=== PATIENT | female | born 1940 | race Caucasian/White ===

== ENCOUNTER → 2024-01-28 11:16 | Outpatient (REF) | payer MEDICARE, SELFPAY ==
[2024-01-28 13:02] LABS: % Basophils 0.6 % (0-2); % Eosinophils 2.1 % (0-6); % Immature Granulocytes 0.3 % (0-0.5); % Lymphocytes 29.2 % (20.5-51.1); % Monocytes 6.9 % (1.7-9.3); % Neutrophils 60.9 % (42.2-75.2); Absolute Eosinophils 0.1 10^3/uL (0-0.7); Absolute Lymphocytes 1.9 10^3/uL (1.2-3.4); Absolute Monocytes 0.5 10^3/uL (0.1-0.6); Hematocrit 39.4 % (37.0-47.0); Hemoglobin 13.2 g/dL (12.0-16.0); Mean Corp Hgb Conc. 33.5 g/dL (33.0-37.0); Mean Corpuscular Hgb 31.7 pg (27.0-31.0); Mean Corpuscular Volume 94.7 fL (81.0-99.0); Mean Platelet Volume 10.5 fL (7.4-10.4); Nucleated Red Blood Cells % 0 %; Platelet Count 297 10^3/uL (130-400); Red Blood Cell Count 4.16 10^6/uL (4.20-5.40); Red Cell Dist. Width 12.6 % (11.5-14.5); White Blood Cell Count 6.5 10^3/uL (4.8-10.8)
[2024-01-28 13:45] LABS: ALT (SGPT) 16 U/L (0-35); AST (SGOT) 21 U/L (14-36); Albumin 4.5 g/dl (3.5-5.0); Alkaline Phosphatase 87 U/L (38-126); Blood Urea Nitrogen 19 mg/dl (7-17); Calcium 10.3 mg/dl (8.4-10.2); Carbon Dioxide 27 mmol/L (22-30); Chloride 104 mmol/L (98-107); Glucose 89 mg/dl (70-99); Potassium 5.2 mmol/L (3.5-5.1); Sodium 139 mmol/L (135-145); Total Bilirubin 0.5 mg/dl (0.2-1.3); Total Protein 6.9 g/dl (6.3-8.2); Uric Acid 6.9 mg/dl (2.5-6.2); eGFR 55.55
[2024-01-28 13:54] LABS: C-Reactive Protein < 5.00 mg/L (0.0-10.00)
[2024-01-28 14:26] LABS: TSH Reflex To Free T4 0.23 uIU/ml (0.47-4.68)
[2024-01-28 14:45] LABS: Vitamin B12 869 pg/ml (239-931)
[2024-01-28 14:53] LABS: Free T4 0.92 ng/dl (0.78-2.19)
[2024-01-28 15:14] LABS: Erythrocyte Sed Rate 17 mm/hour (0-20)
== END ==
LOC: REG 11:16
PROVIDERS: ATTENDING PHYSICIAN Internal Medicine
DX: R21 Rash and other nonspecific skin eruption (principal); R20.2 Paresthesia of skin
CPT/HCPCS: 36415; 80053; 82607; 84439; 84443; 84550; 85025; 85652; 86140

== ENCOUNTER → 2024-02-12 09:11 | Outpatient (REF) | payer MEDICARE, SELFPAY | LOC: RAD 09:11 | PROVIDERS: ATTENDING PHYSICIAN Internal Medicine | DX: R20.2 Paresthesia of skin (principal) | CPT/HCPCS: 70450 ==

== ENCOUNTER → 2024-05-12 09:59 | Outpatient (REF) | payer MEDICARE, SELFPAY | LOC: RAD 09:59 | PROVIDERS: ATTENDING PHYSICIAN Surgery Vascular Surgery; FAMILY PHYSICIAN Internal Medicine | DX: I65.21 Occlusion and stenosis of right carotid artery (principal) | CPT/HCPCS: 93880 ==

== ENCOUNTER 2024-06-28 11:07 | Emergency (ER) | payer MEDICARE, SELFPAY ==
[2024-06-28 11:10] VITALS: BP 169/62
--- NOTE | 2024-06-28 11:40 | ED.GENMED ---
History of Present Illness
<Kaylee Panchal PA-C - Last Filed: 06/28/24 14:12>
General
Chief Complaint: Fall
Source: patient
Exam Limitations: none
Time Seen by Provider: 06/28/24 11:22
Nursing documentation reviewed up to this point in time: agreed with
History of Present Illness
History of Present Illness:
84-year-old female with past medical history of hypertension, hyperlipidemia, takes aspirin presents emergency department today with concerns of dizziness and word finding difficulties following a fall. Patient reports that she was carrying a
carton of soda down to the basement and was walking backwards down the stairs to carry this soda when she lost her footing and fell back from 2 stairs and hit the back of her head. She also notes intermittent headaches. She also states that she
feels shaky. She denies numbness and tingling in her upper extremities. She denies arm pain, back pain, chest wall pain, abdominal pain. She did not loose consciousness. with her witnessed the fall.
Past History
<VELVET Rivera Last Filed: 06/28/24 14:12>
Past History
ED Past Medical History: HTN and Other (Patient has history of diverticulosis, cervical cancer, BPV)
ED Past Surgical History: Other (Patient has had a hysterectomy with radiation therapy for cervical cancer, as well as colonoscopy with cauterization of bleeding sites. )
Patient has exhibited threatening behavior?: No
PSI?: No
Social History
Tobacco: Non-smoker
Alcohol: None
Drug: None
Personal:
Living: with family
Employment: Retired
Family History
Family History: Other (Contributory)
Review of Systems
<Kaylee Panchal PA-C - Last Filed: 06/28/24 14:12>
Review of Systems
All Other Systems: ROS reviewed and negative except as documented in HPI and ROS
Phy Exam
<Kaylee Panchal PA-C - Last Filed: 06/28/24 14:12>
Physical Exam
Physical Exam:
General: Patient is well appearing and in no acute distress; non-toxic
Skin: Warm and dry, small abrasion noted to the posterior scalp
Head: palpable posterior scalp hematma noed
Eyes: Sclera non-icteric. EOMs intact. PERRLA.
Neck: No midline spinal tenderness to palpation
Cardiac: Regular rate and rhythm, no murmurs
Peripheral Vascular: No lower extremity swelling or edema
Pulm: Normal respiratory effort
Abdomen: No abdominal tenderness to palpation
Musculoskeletal: No tenderness to palpation of the bilateral upper and lower extremities, no palpable bony
Neuro: CN II-XII intact. Mild aphasia. Normal finger to nose, heel to stovall.
Psychiatric: Appropriate mood and affect.
Course
<Kaylee Panchal PA-C - Last Filed: 06/28/24 14:12>
Orders/Labs/Results
Orders:
Orders
06/28/24 11:37
CT Cervical Spine W/o Iv Contr Urgent
Comment:
Reason For Exam: midline neck pain
CT Head W/o Iv Contrast Urgent
Comment:
Reason For Exam: dizzines, posterior head trauma
06/28/24 11:59
Labetalol HCl [Trandate] 10 mg IV NOW STA
06/28/24 12:12
Basic Metabolic Panel Urgent
Complete Blood Count/With Diff Urgent
PTT Urgent
Prothrombin Time Urgent
Abnormal Lab Results
06/28/24
12:12
RBC 3.94 L 10^6/uL
(4.20-5.40)
MCV 99.7 H fL
(81.0-99.0)
MCH 31.7 H pg
(27.0-31.0)
MCHC 31.8 L g/dL
(33.0-37.0)
Abs Immat Gran (auto) 0.1 H 10^3/uL
(0-0.05)
Absolute Monos (auto) 0.7 H 10^3/uL
(0.1-0.6)
Immature Gran % 0.6 H %
(0-0.5)
Lymphocytes % 19.2 L %
(20.5-51.1)
Carbon Dioxide 21 L mmol/L
(22-30)
BUN 26 H mg/dl
(7-17)
Creatinine 1.1 H mg/dL
(0.6-1.0)
Glucose 152 H mg/dl
(70-99)
06/28/24 12:12
06/28/24 12:12
Vital Signs
Initial and Last Documented VS:
Initial Vital Signs
Temp Pulse Resp BP Pulse Ox
97.7 F 94 18 169/62 99
06/28/24 11:10 06/28/24 11:10 06/28/24 11:10 06/28/24 11:10 06/28/24 11:10
Last Documented Vital Signs
Temp Pulse Resp BP Pulse Ox
97.7 F 77 19 121/43 95
06/28/24 11:10 06/28/24 13:15 06/28/24 13:15 06/28/24 13:00 06/28/24 13:15
<Emory Torres, DO - Last Filed: 06/28/24 12:41>
Orders/Labs/Results
Orders:
Orders
06/28/24 11:37
CT Cervical Spine W/o Iv Contr Urgent
Comment:
Reason For Exam: midline neck pain
CT Head W/o Iv Contrast Urgent
Comment:
Reason For Exam: dizzines, posterior head trauma
06/28/24 11:59
Labetalol HCl [Trandate] 10 mg IV NOW STA
06/28/24 12:12
Basic Metabolic Panel Urgent
Complete Blood Count/With Diff Urgent
PTT Urgent
Prothrombin Time Urgent
Abnormal Lab Results
06/28/24
12:12
RBC 3.94 L 10^6/uL
(4.20-5.40)
MCV 99.7 H fL
(81.0-99.0)
MCH 31.7 H pg
(27.0-31.0)
MCHC 31.8 L g/dL
(33.0-37.0)
Abs Immat Gran (auto) 0.1 H 10^3/uL
(0-0.05)
Absolute Monos (auto) 0.7 H 10^3/uL
(0.1-0.6)
Immature Gran % 0.6 H %
(0-0.5)
Lymphocytes % 19.2 L %
(20.5-51.1)
Carbon Dioxide 21 L mmol/L
(22-30)
BUN 26 H mg/dl
(7-17)
Creatinine 1.1 H mg/dL
(0.6-1.0)
Glucose 152 H mg/dl
(70-99)
06/28/24 12:12
06/28/24 12:12
Vital Signs
Initial and Last Documented VS:
Initial Vital Signs
Temp Pulse Resp BP Pulse Ox
97.7 F 94 18 169/62 99
06/28/24 11:10 06/28/24 11:10 06/28/24 11:10 06/28/24 11:10 06/28/24 11:10
Last Documented Vital Signs
Temp Pulse Resp BP Pulse Ox
97.7 F 77 19 121/43 95
06/28/24 11:10 06/28/24 13:15 06/28/24 13:15 06/28/24 13:00 06/28/24 13:15
<Kaylee Panchal PA-C - Last Filed: 06/28/24 14:12>
MDM/Problems Addressed
Differential Diagnosis Includes:
See below
MDM/Problems Addressed:
NUMBER AND COMPLEXITY OF PROBLEMS ADDRESSED AT THE ENCOUNTER
� Chronic conditions affecting care: HTN, diabetes, HLP
� Acute Exacerbation and/or Progression of Chronic Illness:
� Differential Diagnosis includes: Differentials include concussion, abrasion, epidural hematoma, subarachnoid hemorrhage, subdural hematoma
AMOUNT AND/OR COMPLEXITY OF DATA TO BE REVIEWED AND ANALYZED
� I performed an independent evaluation of and my interpretation is
CT: subarachnoid hemorrhage
Laboratory Studies: CBC unremarkable
Other:
� Review of other/old records: Reviewed previous ER physician documentation from 04/25/2022, patient seen for vertigo and discharge, reviewed [facility] no discharge summary to
� Clinical information was obtained by an independent historian: present with patient who also provided HPI
� Prescriptions/Medications Considered but not given: none
� Further testing considered but not performed: n/a
RISK OF COMPLICATIONS AND/OR MORBIDITY OR MORTALITY OF PATIENT MANAGEMENT
� Social determinants of health affecting care: none
� Discussion with other providers: ER attending
� Escalation of care including admission/observation vs risk of discharge considered:
84-year-old female presents emergency department with dizziness and word finding difficulties following a fall. She fell backwards down 3 steps. She has dizziness,headache, word finding difficulties. She not lose consciousness. She came in by
private ambulance. She is able to get up and walk on her own after the fall. Her CT scan reveals moderate subarachnoid hemorrhage involving the left frontotemporal regions and extending around the left aspect of the basal cisterns with
questionable small amounts of subdural or subarachnoid blood. [facility] contacted for transfer. BP management initiated with dose of labetolol.
<Kaylee Panchal PA-C - Last Filed: 06/28/24 14:12>
*Pulse Oximetry
Patient hypoxic: no
*Critical Care Note
Total Time (30-74mins, 75-104mins- exclusive of procedures): 40
<Emory Torres DO - Last Filed: 06/28/24 12:41>
*Critical Care Note
Total Time (30-74mins, 75-104mins- exclusive of procedures): 40min
comment:
I evaluated the patient emergently at bedside. She is found to have a traumatic subarachnoid hemorrhage greater than subdural hemorrhage. Her blood pressure was elevated and she was emergently given labetalol to decrease the blood pressure to
between 110 and 140 as recommended by the doctors at [facility]. Neurologic status was closely monitored. Blood work was reviewed.
ED Attending Note
<Kaylee Panchal PA-C - Last Filed: 06/28/24 14:12>
-
Portions of this chart may have been created with voice recognition software.� Occasional wrong word or��sound alike� substitutions may have occurred due to the inherent limitations of voice recognition software.
<Emory Torres DO - Last Filed: 06/28/24 12:41>
ED Attending Note
Patient seen and examined by attending physician: Yes
I performed the substantive portion of visit, reviewed & personally made and approve the management plan that is documented in note by myself or MILTON.: Yes
ED Attending Note:
As patient was wheeled back from CT, I was informed of the CT techs concern of intracranial hemorrhage. There does appear to be left-sided subarachnoid blood. I immediately evaluated the patient. She did have a traumatic event earlier today and
struck her head. She does have some dizziness and has some word problem findings currently.
Discharge Plan
Departure
Patient Disposition: [facility]
Date of Disposition: 06/28/24
Time of Disposition: 12:00
Discharge Problem:
Traumatic subarachnoid hemorrhage
Prescriptions:
No Action
amlodipine 5 MG tablet
5 mg PO DAILY
folic acid 0.4 MG tablet
0.4 mg PO DAILY
benazepril 20 MG tablet
20 mg PO DAILY
One-A-Day Women's 50 Plus 1 EACH tablet
1 ea PO DAILY
epinephrine [EpiPen] 0.3 MG/0.3/SYRINGE auto-injector
0.3 mg IM .STAT PRN (Reason: allergic reaction) Qty: 1 0RF
diphenhydramine HCl [Benadryl] 25 mg capsule
25 mg PO TID PRN (Reason: itching) Qty: 20 0RF
Metamucil
1 dose PO DAILY
famotidine 20 MG tablet
20 mg PO DAILY PRN (Reason: bee sting)
meclizine 25 mg tablet
25 mg PO TID PRN (Reason: dizziness) Qty: 10 0RF
Referrals:
Julian Schaffer MD [Family Provider] -
Hospital Transfer
Other hospital: [facility]
I certify that the patient requires transfer: Yes
Discussed case with accepting physician: Dr. Chacon
Reason for transfer: higher level of care
Interventions
Interventions:
*Risk Screen - Suicide Last Done: 06/28/24 11:10
*General Assessment Last Done: 06/28/24 11:10
*Neglect/Abuse Screening Last Done: 06/28/24 12:03
ED- Fall Risk Assessment Last Done: 06/28/24 12:55
*ED COVID-19 Vaccine History Last Done: 06/28/24 11:10
*Nursing Disposition Last Done: 06/28/24 12:55
ED-Musculoskeletal Assessment Last Done: 06/28/24 12:01
ED- Neurological Assessment Last Done: 06/28/24 12:01
ED-Skin Assessment Last Done: 06/28/24 12:01
Discharge Date and Time
Print Language: HUNGARIAN
[2024-06-28 11:56] VITALS: BP 165/68
[2024-06-28 12:00] VITALS: BP 159/72
[2024-06-28] MEDS: TRANDATE 10 MG IV (12:13)
[2024-06-28 12:16] VITALS: BP 120/39
[2024-06-28 12:25] LABS: % Basophils 0.5 % (0-2); % Immature Granulocytes 0.6 % (0-0.5); % Lymphocytes 19.2 % (20.5-51.1); % Monocytes 7.8 % (1.7-9.3); % Neutrophils 69.9 % (42.2-75.2); Absolute Basophils 0.1 10^3/uL (0-0.2); Absolute Eosinophils 0.2 10^3/uL (0-0.7); Absolute Immature Granulocytes 0.1 10^3/uL (0-0.05); Absolute Lymphocytes 1.8 10^3/uL (1.2-3.4); Absolute Monocytes 0.7 10^3/uL (0.1-0.6); Absolute Neutrophils 6.5 10^3/uL (1.4-6.5); Hematocrit 39.3 % (37.0-47.0); Hemoglobin 12.5 g/dL (12.0-16.0); Mean Corp Hgb Conc. 31.8 g/dL (33.0-37.0); Mean Corpuscular Hgb 31.7 pg (27.0-31.0); Mean Corpuscular Volume 99.7 fL (81.0-99.0); Mean Platelet Volume 9.7 fL (7.4-10.4); Nucleated Red Blood Cells % 0 %; Platelet Count 345 10^3/uL (130-400); Red Blood Cell Count 3.94 10^6/uL (4.20-5.40); Red Cell Dist. Width 13.2 % (11.5-14.5); White Blood Cell Count 9.3 10^3/uL (4.8-10.8)
[2024-06-28 12:36] LABS: Blood Urea Nitrogen 26 mg/dl (7-17); Calcium 10.1 mg/dl (8.4-10.2); Carbon Dioxide 21 mmol/L (22-30); Chloride 104 mmol/L (98-107); Glucose 152 mg/dl (70-99); Potassium 4.8 mmol/L (3.5-5.1); Sodium 135 mmol/L (135-145); eGFR 49.55
[2024-06-28 12:39] LABS: INR 0.87; PT 12.4 Sec (11.4-14.6)
[2024-06-28 12:40] LABS: APTT 26.8 Sec (23.4-35.0)
[2024-06-28 13:00] VITALS: BP 121/43
== END 2024-06-28 13:45 | disposition short-term general hospital (02) ==
LOC: EMR 11:07
PROVIDERS: EMERGENCY PHYSICIAN Emergency Medicine; FAMILY PHYSICIAN Internal Medicine
DX: S06.6X0A Traumatic subarachnoid hemorrhage without loss of consciousness, initial encounter (principal); W10.8XXA Fall (on) (from) other stairs and steps, initial encounter; E78.5 Hyperlipidemia, unspecified; I10 Essential (primary) hypertension; E11.9 Type 2 diabetes mellitus without complications; Z85.41 Personal history of malignant neoplasm of cervix uteri; Z90.710 Acquired absence of both cervix and uterus
CPT/HCPCS: 96374; 99291; 70450; 72125; 80048; 85025; 85610; 85730

== ENCOUNTER 2024-07-11 09:00 | Outpatient (RCR) | payer MEDICARE, SELFPAY | END 2024-07-11 23:59 | disposition home or self-care (01) | LOC: ROT 09:00 | PROVIDERS: ATTENDING PHYSICIAN Internal Medicine | DX: S06.9X9D Unspecified intracranial injury with loss of consciousness of unspecified duration, subsequent encounter (principal); R47.01 Aphasia; Z73.6 Limitation of activities due to disability | CPT/HCPCS: 70450; 92507; 92523; 97167; 97535 ==

== ENCOUNTER → 2024-07-11 10:24 | Outpatient (REF) | payer MEDICARE, SELFPAY | LOC: RAD 10:24 | PROVIDERS: ATTENDING PHYSICIAN Internal Medicine | DX: S74.02XA Injury of sciatic nerve at hip and thigh level, left leg, initial encounter (principal) | CPT/HCPCS: 72100 ==

== ENCOUNTER 2024-07-14 12:04 | Emergency (ER) | payer MEDICARE, SELFPAY ==
[2024-07-14] VITALS (24 sets, daily range): BP systolic 87–171; BP diastolic 48–97; PULSE 92–120; BMI 16.1
--- NOTE | 2024-07-14 12:35 | ED.GENMED ---
ED Provider Triage
<Gamal Ceballos PA-C - Last Filed: 07/14/24 12:37>
-
Patient seen by provider in Triage?: Seen in Triage
84 yo female presents due to orthostatic hypotension at PT today. Standing BP 60/40. Feels well at the moment; near syncopal during the event. Mildly hypotensive in triage.
Looks well while seated. Took amlodipine/benazepril this AM. Also took tramadol 50mg this AM.
Check labs/EKG; will need fluids due to hypotension
History of Present Illness
<Gamal Ceballos PA-C - Last Filed: 07/14/24 12:37>
General
Chief Complaint: Blood Pressure Problem
Time Seen by Provider: 07/14/24 14:39
<Gaye Conley BANQUET STEWARDESS - Last Filed: 07/15/24 15:36>
General
Source: patient and spouse
Exam Limitations: none
Nursing documentation reviewed up to this point in time: agreed with
History of Present Illness
History of Present Illness:
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 She has been coming for outpatient speech therapy and Occupational Therapy
starting 4 days ago. Today was her first day of physical therapy. She finished the P/T session well and at the end of the session as usual they checked her blood pressure and it was reported to be 64/45 standing and. 115/52 laying supine, 98/84
sitting, states patient was saying 'everything looked hazy,' and patient states that intermittently chronically her legs feel weak and things get hazy but she denies feeling that way at this time.
Pt denies headache, change in vision, CP, SOB, abdominal pain. Denies feeling lightheaded or dizzy.
Past History
<Gamal Ceballos PA-C - Last Filed: 07/14/24 12:37>
Past History
ED Past Medical History: HTN and Other (Patient has history of diverticulosis, cervical cancer, BPV)
ED Past Surgical History: Other (Patient has had a hysterectomy with radiation therapy for cervical cancer, as well as colonoscopy with cauterization of bleeding sites. )
Patient has exhibited threatening behavior?: No
PSI?: No
Social History
Tobacco: Non-smoker
Alcohol: None
Drug: None
Personal:
Living: with family
Employment: Retired
Family History
Family History: Other (Contributory)
<Gaye Conley, BANQUET STEWARDESS - Last Filed: 07/15/24 15:36>
Past History
ED Past Medical History: Hypercholesterolemia
Review of Systems
<Gaye Conley, BANQUET STEWARDESS - Last Filed: 07/15/24 15:36>
Review of Systems
Allergies reviewed?: Yes
All Other Systems: ROS reviewed and negative except as documented in HPI and ROS
Constitutional: Denies fever or chills
Respiratory: Denies trouble breathing
Cardiac: Denies chest pain, palpitations or syncope
ABD/GI: Denies abdominal pain, nausea, vomiting, diarrhea or anorexia
: Denies dysuria, frequency or difficulty voiding
Musculoskeletal: Reports no symptoms
Skin: Reports no symptoms
Neurological: Reports no symptoms
Phy Exam
<Gaye Conley, BANQUET STEWARDESS - Last Filed: 07/15/24 15:36>
Physical Exam
Physical Exam:
GENERAL: No acute distress. A&Ox3.
CONSTITUTIONAL: Afebrile.
EYES: clear, conjunctivae normal
ENMT: moist mucus membranes, Pharynx nl
RESPIRATORY: Regular respirations, nonlabored, lungs clear.
CARDIOVASCULAR: Regular rate and rhythm, no murmurs, no rubs.
GI: Soft, nontender, normal BS
MUSCULOSKELETAL: Moves with ease. Well perfused.
SKIN: Warm, dry, pink
PSYCH: Normal mood and affect. Well kept, interactive and appropriate
NEUROLOGIC: Awake, alert and oriented. No focal neurological deficits. Ambulates well with steady gait.
Course
<Gamal Ceballos PA-C - Last Filed: 07/14/24 12:37>
Orders/Labs/Results
Orders:
Orders
07/14/24 12:35
Electrocardiogram (*1) Urgent
Reason for Study: TIA/Stroke
EKG- Treatment ONCE
07/14/24 13:23
Complete Blood Count/With Diff Urgent
07/14/24 14:18
Comprehensive Metabolic Panel Urgent
07/14/24 14:53
0.9% Sodium Chloride 1000 ml [Nss] 1,000 ml IV BOLUS
07/14/24 18:05
Urinalysis Reflex To Culture Urgent
Date Specimen was Collected: 07/14/24
Time Specimen was Collected: 18:04
Urine Microscopic Reflex Cult Urgent
Urine Culture Urgent
DINORA Source: U
Specimen Description:
Date Specimen was Collected: 07/14/24
Time Specimen was Collected: 18:04
Abnormal Lab Results
07/14/24 07/14/24 07/14/24
13:23 14:18 18:05
RBC 3.65 L 10^6/uL
(4.20-5.40)
Hgb 11.9 L g/dL
(12.0-16.0)
Hct 35.6 L %
(37.0-47.0)
MCH 32.6 H pg
(27.0-31.0)
Plt Count 486 H 10^3/uL
(130-400)
Abs Immat Gran (auto) 0.1 H 10^3/uL
(0-0.05)
Immature Gran % 0.6 H %
(0-0.5)
Neutrophils % 75.3 H %
(42.2-75.2)
Lymphocytes % 15.4 L %
(20.5-51.1)
BUN 26 H mg/dl
(7-17)
Glucose 126 H mg/dl
(70-99)
Total Protein 6.0 L g/dl
(6.3-8.2)
Leukocyte Esterase Rfl Trace A
(Negative)
Urine Bacteria (Reflex) Moderate A
(Negative)
07/14/24 13:23
07/14/24 14:18
Vital Signs
Initial and Last Documented VS:
Initial Vital Signs
Temp Pulse Resp BP Pulse Ox
97.4 F 105 20 87/55 98
07/14/24 12:32 07/14/24 12:32 07/14/24 12:32 07/14/24 12:32 07/14/24 12:32
Last Documented Vital Signs
Temp Pulse Resp BP Pulse Ox
97.4 F 92 21 150/51 98
07/14/24 12:32 07/14/24 16:00 07/14/24 16:00 07/14/24 16:00 07/14/24 12:32
<Gaye Conley, BANQUET STEWARDESS - Last Filed: 07/15/24 15:36>
Orders/Labs/Results
Orders:
Orders
07/14/24 12:35
Electrocardiogram (*1) Urgent
Reason for Study: TIA/Stroke
EKG- Treatment ONCE
07/14/24 13:23
Complete Blood Count/With Diff Urgent
07/14/24 14:18
Comprehensive Metabolic Panel Urgent
07/14/24 14:53
0.9% Sodium Chloride 1000 ml [Nss] 1,000 ml IV BOLUS
07/14/24 18:05
Urinalysis Reflex To Culture Urgent
Date Specimen was Collected: 07/14/24
Time Specimen was Collected: 18:04
Urine Microscopic Reflex Cult Urgent
Urine Culture Urgent
DINORA Source: U
Specimen Description:
Date Specimen was Collected: 07/14/24
Time Specimen was Collected: 18:04
Abnormal Lab Results
07/14/24 07/14/24 07/14/24
13:23 14:18 18:05
RBC 3.65 L 10^6/uL
(4.20-5.40)
Hgb 11.9 L g/dL
(12.0-16.0)
Hct 35.6 L %
(37.0-47.0)
MCH 32.6 H pg
(27.0-31.0)
Plt Count 486 H 10^3/uL
(130-400)
Abs Immat Gran (auto) 0.1 H 10^3/uL
(0-0.05)
Immature Gran % 0.6 H %
(0-0.5)
Neutrophils % 75.3 H %
(42.2-75.2)
Lymphocytes % 15.4 L %
(20.5-51.1)
BUN 26 H mg/dl
(7-17)
Glucose 126 H mg/dl
(70-99)
Total Protein 6.0 L g/dl
(6.3-8.2)
Leukocyte Esterase Rfl Trace A
(Negative)
Urine Bacteria (Reflex) Moderate A
(Negative)
07/14/24 13:23
07/14/24 14:18
Vital Signs
Initial and Last Documented VS:
Initial Vital Signs
Temp Pulse Resp BP Pulse Ox
97.4 F 105 20 87/55 98
07/14/24 12:32 07/14/24 12:32 07/14/24 12:32 07/14/24 12:32 07/14/24 12:32
Last Documented Vital Signs
Temp Pulse Resp BP Pulse Ox
97.4 F 92 21 150/51 98
07/14/24 12:32 07/14/24 16:00 07/14/24 16:00 07/14/24 16:00 07/14/24 12:32
<Gaye Conley NP - Last Filed: 07/15/24 15:36>
MDM/Problems Addressed
Differential Diagnosis Includes:
orthostatic hypotension, dehydration
MDM/Problems Addressed:
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 She has been coming for outpatient speech therapy and Occupational Therapy
starting 4 days ago. Today was her first day of physical therapy. She finished the P/T session well and at the end of the session as usual they checked her blood pressure and it was reported to be 64/45 standing and. 115/52 laying supine, 98/84
sitting, states patient was saying 'everything looked hazy,' and patient states that intermittently chronically her legs feel weak and things get hazy but she denies feeling that way at this time.
Pt denies headache, change in vision, CP, SOB, abdominal pain. Denies feeling lightheaded or dizzy.
Only new medication is Plavix
EKG: NSR with occas PVC
5:30 p.m.
After 1 L NSS IV:
Orthostatic vs by this examiner
Supine 160/58 HR 103
Sitting 122/87 HR 88
Standing 135/46 HR 95 pt denies feeling dizzy, lightheaded
Pt is more agitated, as she wants to go home.
Pt instructed to have no further P/T until cleared by Dr. Schaffer early next week. Return precautions reviewed with pt and .
Urinalysis pending. Pt anxious to get home will dc and call if u/a positive.
U/A neg
<Gaye Conley, BANQUET STEWARDESS - Last Filed: 07/15/24 15:36>
*EKG
EKG Intrepretation Date: 07/14/24
Interpretation: abnormal
Heart Rate: 90
Rate: normal
Rhythm: PVC's
[place]: normal axis
Interval: normal interval
QRS Pattern: normal QRS
Ischemia: no ischemia
*Critical Care Note
Total Time (30-74mins, 75-104mins- exclusive of procedures): Not Applicable
ED Attending Note
<Gamal Ceballos PA-C - Last Filed: 07/14/24 12:37>
-
Portions of this chart may have been created with voice recognition software.� Occasional wrong word or��sound alike� substitutions may have occurred due to the inherent limitations of voice recognition software.
Discharge Plan
Departure
Patient Disposition: Home (Routine Discharge)
Date of Disposition: 07/14/24
Time of Disposition: 17:40
Patient with high blood pressure during this ER visit?: No
Condition: Good
Discharge Problem:
Hypotension, postural
Instructions: Orthostatic hypotension
Prescriptions:
No Action
amlodipine 5 MG tablet
5 mg PO DAILY
folic acid 0.4 MG tablet
0.4 mg PO DAILY
benazepril 20 MG tablet
20 mg PO DAILY
atorvastatin 80 mg Tablet
80 mg PO DAILY
cyanocobalamin (vitamin B-12) 1,000 mcg Tablet
1,000 mcg PO DAILY
clopidogrel 75 mg Tablet
75 mg PO DAILY
aspirin 81 mg Tablet,Delayed Release (Dr/Ec)
81 mg PO DAILY
tramadol 50 mg Tablet
50 mg PO BID
acetaminophen [Tylenol 8 Hour] 650 mg Tablet Extended Release
1,300 mg PO Q12H
Referrals:
Julian Schaffer MD [Family Provider] - Call in 1-3 days for appt
Activity Restrictions/Additional Instructions:
As we discussed, call Dr. Schaffer's office first thing Wednesday morning and make same or next day appointment for recheck of blood pressures and heart rate
Drink at least 6 eight ounce glasses of water/fluid daily
When going from laying to sitting to standing, do it slowly.
Return here immediately over the weekend for dizziness, feeling faint, or feeling worse in any way.
No Physical Therapy until further instructed by Dr. Schaffer next week.
Interventions
Interventions:
*Risk Screen - Suicide Last Done: 07/14/24 12:32
*General Assessment Last Done: 07/14/24 12:32
*Neglect/Abuse Screening Last Done: 07/14/24 12:32
ED- Fall Risk Assessment Last Done: 07/14/24 13:11
*ED COVID-19 Vaccine History Last Done: 07/14/24 13:11
*Nursing Disposition Last Done: 07/14/24 18:07
ED- Cardiac Assessment Last Done: 07/14/24 13:11
ED- Neurological Assessment Last Done: 07/14/24 13:11
ED- Pulmonary Assessment Last Done: 07/14/24 13:11
Discharge Date and Time
Discharge Date/Time: 07/14/24 18:08
Print Language: BOLIVIAN
[2024-07-14 13:53] LABS: % Basophils 0.5 % (0-2); % Eosinophils 0.6 % (0-6); % Immature Granulocytes 0.6 % (0-0.5); % Lymphocytes 15.4 % (20.5-51.1); % Monocytes 7.6 % (1.7-9.3); % Neutrophils 75.3 % (42.2-75.2); Absolute Eosinophils 0.1 10^3/uL (0-0.7); Absolute Immature Granulocytes 0.1 10^3/uL (0-0.05); Absolute Lymphocytes 1.3 10^3/uL (1.2-3.4); Absolute Monocytes 0.6 10^3/uL (0.1-0.6); Absolute Neutrophils 6.2 10^3/uL (1.4-6.5); Hematocrit 35.6 % (37.0-47.0); Hemoglobin 11.9 g/dL (12.0-16.0); Mean Corp Hgb Conc. 33.4 g/dL (33.0-37.0); Mean Corpuscular Hgb 32.6 pg (27.0-31.0); Mean Corpuscular Volume 97.5 fL (81.0-99.0); Mean Platelet Volume 9.2 fL (7.4-10.4); Nucleated Red Blood Cells % 0 %; Platelet Count 486 10^3/uL (130-400); Red Blood Cell Count 3.65 10^6/uL (4.20-5.40); Red Cell Dist. Width 12.7 % (11.5-14.5); White Blood Cell Count 8.2 10^3/uL (4.8-10.8)
[2024-07-14 14:45] LABS: ALT (SGPT) 23 U/L (0-35); Albumin 3.6 g/dl (3.5-5.0); Alkaline Phosphatase 75 U/L (38-126); Blood Urea Nitrogen 26 mg/dl (7-17); Calcium 10.2 mg/dl (8.4-10.2); Carbon Dioxide 25 mmol/L (22-30); Chloride 104 mmol/L (98-107); Estimated Creatinine Clearance 31 ml/min; Glucose 126 mg/dl (70-99); Potassium 4.8 mmol/L (3.5-5.1); Sodium 137 mmol/L (135-145); Total Bilirubin 0.4 mg/dl (0.2-1.3); eGFR > 60.00
[2024-07-14 14:59] LABS: AST (SGOT) 22 U/L (14-36)
[2024-07-14] MEDS: NSS 1000 IV (15:02)
[2024-07-14 18:19] LABS: Urine Albumin Negative (Neg - Trace); Urine Bilirubin Negative (Negative); Urine Character Clear (Clear); Urine Color Yellow; Urine Glucose Negative (Negative); Urine Ketone Negative (Negative); Urine Leukocyte Trace (Negative); Urine Nitrite Negative (Negative); Urine Occult Blood Negative (Negative); Urine Specific Gravity 1.015 (<1.030); Urine Urobilinogen Negative (Neg - 1+)
[2024-07-14 18:25] LABS: Urine Mucus Moderate
[2024-07-14 18:26] LABS: Urine Bacteria Moderate (Negative); Urine Red Blood Cell 0-2 /HPF (0-2); Urine White Cell 0-2 /HPF (0-5)
== END 2024-07-14 18:08 | disposition home or self-care (01) ==
LOC: EMR 12:04
PROVIDERS: Physician Assistant; Registered Nurse; EMERGENCY PHYSICIAN Emergency Medicine; FAMILY PHYSICIAN Internal Medicine
DX: I95.9 Hypotension, unspecified (principal); I10 Essential (primary) hypertension; E78.00 Pure hypercholesterolemia, unspecified; Z86.73 Personal history of transient ischemic attack (TIA), and cerebral infarction without residual deficits
CPT/HCPCS: 99284; 96360; 80053; 81003; 81015; 85025; 87086; 93005

== ENCOUNTER → 2024-07-25 09:37 | Outpatient (REF) | payer MEDICARE, SELFPAY ==
[2024-07-25 11:27] LABS: % Basophils 0.5 % (0-2); % Immature Granulocytes 0.3 % (0-0.5); % Lymphocytes 25.7 % (20.5-51.1); % Monocytes 8.8 % (1.7-9.3); % Neutrophils 63.7 % (42.2-75.2); Absolute Eosinophils 0.1 10^3/uL (0-0.7); Absolute Lymphocytes 1.5 10^3/uL (1.2-3.4); Absolute Monocytes 0.5 10^3/uL (0.1-0.6); Absolute Neutrophils 3.8 10^3/uL (1.4-6.5); Hematocrit 34.2 % (37.0-47.0); Mean Corp Hgb Conc. 32.2 g/dL (33.0-37.0); Mean Corpuscular Volume 99.4 fL (81.0-99.0); Mean Platelet Volume 10.3 fL (7.4-10.4); Nucleated Red Blood Cells % 0 %; Platelet Count 396 10^3/uL (130-400); Red Blood Cell Count 3.44 10^6/uL (4.20-5.40); Red Cell Dist. Width 12.2 % (11.5-14.5); White Blood Cell Count 5.9 10^3/uL (4.8-10.8)
[2024-07-25 12:02] LABS: Erythrocyte Sed Rate 23 mm/hour (0-20)
[2024-07-25 12:36] LABS: TSH Reflex To Free T4 < 0.02 uIU/ml (0.47-4.68)
[2024-07-25 12:39] LABS: Albumin 3.8 g/dl (3.5-5.0); Blood Urea Nitrogen 14 mg/dl (7-17); Calcium 9.7 mg/dl (8.4-10.2); Carbon Dioxide 21 mmol/L (22-30); Chloride 102 mmol/L (98-107); Glucose 234 mg/dl (70-99); Phosphorus 3.8 mg/dl (2.5-4.5); Sodium 136 mmol/L (135-145); eGFR > 60.00
[2024-07-25 13:06] LABS: Free T4 2.68 ng/dl (0.78-2.19)
== END ==
LOC: REG 09:37
PROVIDERS: ATTENDING PHYSICIAN Internal Medicine
DX: I63.9 Cerebral infarction, unspecified (principal); I10 Essential (primary) hypertension; R63.4 Abnormal weight loss
CPT/HCPCS: 36415; 80069; 84439; 84443; 85025; 85652

== ENCOUNTER → 2024-08-08 06:19 | Outpatient (REF) | payer MEDICARE, SELFPAY ==
[2024-08-08 08:14] LABS: Urine Albumin Trace (Neg - Trace); Urine Bilirubin Negative (Negative); Urine Character Clear (Clear); Urine Color Yellow; Urine Glucose Negative (Negative); Urine Ketone Negative (Negative); Urine Leukocyte Negative (Negative); Urine Nitrite Negative (Negative); Urine Occult Blood Negative (Negative); Urine Urobilinogen Negative (Neg - 1+)
[2024-08-08 08:59] LABS: Erythrocyte Sed Rate 22 mm/hour (0-20)
[2024-08-10 01:56] LABS: ANA, IgG Reflex to HEp-2 None Detected (None Detected)
[2024-08-10 08:22] LABS: SSA 52 (Ro)(ENA) Ab, IgG 22 AU/mL (0-40); SSA 60 (Ro)(ENA) Ab, IgG 0 AU/mL (0-40)
== END ==
LOC: RAD 06:19
PROVIDERS: ATTENDING PHYSICIAN Psychiatry & Neurology Neurology; FAMILY PHYSICIAN Internal Medicine
DX: Z13.29 Encounter for screening for other suspected endocrine disorder (principal); G44.209 Tension-type headache, unspecified, not intractable; I63.9 Cerebral infarction, unspecified
CPT/HCPCS: 36415; 78014; 81003; 85652; 86038; 86140; 86235; A9516

== ENCOUNTER 2024-08-10 12:40 | Outpatient (RCR) | payer MEDICARE, SELFPAY | END 2024-08-10 23:59 | disposition home or self-care (01) | LOC: RPT 12:40 | PROVIDERS: ATTENDING PHYSICIAN Internal Medicine | DX: S06.9X0D Unspecified intracranial injury without loss of consciousness, subsequent encounter (principal); Z73.6 Limitation of activities due to disability; R26.89 Other abnormalities of gait and mobility; R47.01 Aphasia; R51.9 Headache, unspecified; R42 Dizziness and giddiness | CPT/HCPCS: 92507; 97110; 97112; 97116; 97163; 97530; 97535 ==

== ENCOUNTER 2024-09-07 10:54 | Outpatient (RCR) | payer MEDICARE, SELFPAY | END 2024-09-07 23:59 | disposition home or self-care (01) | LOC: RPT 10:54 | PROVIDERS: ATTENDING PHYSICIAN Internal Medicine | DX: S06.9X0D Unspecified intracranial injury without loss of consciousness, subsequent encounter (principal); Z73.6 Limitation of activities due to disability; R26.89 Other abnormalities of gait and mobility; X58.XXXD Exposure to other specified factors, subsequent encounter; R42 Dizziness and giddiness; R47.01 Aphasia | CPT/HCPCS: 92507; 97110; 97112; 97116; 97530; 97535 ==

== ENCOUNTER 2024-10-05 11:38 | Outpatient (RCR) | payer MEDICARE, SELFPAY | END 2024-10-09 23:59 | disposition home or self-care (01) | LOC: RPT 11:38 | PROVIDERS: ATTENDING PHYSICIAN Internal Medicine | DX: S06.9X0D Unspecified intracranial injury without loss of consciousness, subsequent encounter (principal); R47.01 Aphasia; R26.89 Other abnormalities of gait and mobility; R42 Dizziness and giddiness; Z73.6 Limitation of activities due to disability; X58.XXXD Exposure to other specified factors, subsequent encounter | CPT/HCPCS: 36415; 70450; 80053; 84439; 84443; 85025; 92507 ==

== ENCOUNTER → 2024-10-25 08:59 | Outpatient (REF) | payer MEDICARE, SELFPAY | LOC: RAD 08:59 | PROVIDERS: ATTENDING PHYSICIAN Physician Assistant Medical; FAMILY PHYSICIAN Internal Medicine | DX: S06.5XAA Traumatic subdural hemorrhage with loss of consciousness status unknown, initial encounter (principal); I60.9 Nontraumatic subarachnoid hemorrhage, unspecified | CPT/HCPCS: 70450 ==

== ENCOUNTER 2024-11-08 06:22 | Outpatient (RCR) | payer MEDICARE, SELFPAY | END 2024-11-08 23:59 | disposition home or self-care (01) | LOC: RPT 06:22 | PROVIDERS: ATTENDING PHYSICIAN Internal Medicine | DX: S06.9X0D Unspecified intracranial injury without loss of consciousness, subsequent encounter (principal); R47.01 Aphasia; R26.89 Other abnormalities of gait and mobility; R42 Dizziness and giddiness; Z73.6 Limitation of activities due to disability; X58.XXXD Exposure to other specified factors, subsequent encounter | CPT/HCPCS: 92507 ==

== ENCOUNTER 2024-12-06 06:56 | Outpatient (RCR) | payer MEDICARE, SELFPAY | END 2024-12-06 23:59 | disposition home or self-care (01) | LOC: RPT 06:56 | PROVIDERS: ATTENDING PHYSICIAN Internal Medicine | DX: S06.9X0D Unspecified intracranial injury without loss of consciousness, subsequent encounter (principal); R47.01 Aphasia; R26.89 Other abnormalities of gait and mobility; R42 Dizziness and giddiness; Z73.6 Limitation of activities due to disability; X58.XXXD Exposure to other specified factors, subsequent encounter | CPT/HCPCS: 92507 ==

== ENCOUNTER 2025-01-03 10:17 | Outpatient (RCR) | payer MEDICARE, SELFPAY | END 2025-01-03 23:59 | disposition home or self-care (01) | LOC: RPT 10:17 | PROVIDERS: ATTENDING PHYSICIAN Internal Medicine | DX: S06.9X0D Unspecified intracranial injury without loss of consciousness, subsequent encounter (principal); R47.01 Aphasia; R26.89 Other abnormalities of gait and mobility; R42 Dizziness and giddiness; Z73.6 Limitation of activities due to disability; X58.XXXD Exposure to other specified factors, subsequent encounter | CPT/HCPCS: 92507 ==

== ENCOUNTER → 2025-03-29 07:14 | Outpatient (REF) | payer MEDICARE, SELFPAY ==
[2025-03-29 09:20] LABS: TSH 0.93 uIU/ml (0.47-4.68)
== END ==
LOC: REG 07:14
PROVIDERS: ATTENDING PHYSICIAN Internal Medicine
DX: E06.1 Subacute thyroiditis (principal)
CPT/HCPCS: 36415; 84439; 84443

== ENCOUNTER → 2025-05-23 09:50 | Outpatient (REF) | payer MEDICARE, SELFPAY | LOC: RAD 09:50 | PROVIDERS: ATTENDING PHYSICIAN Surgery Vascular Surgery; FAMILY PHYSICIAN Internal Medicine | DX: I65.21 Occlusion and stenosis of right carotid artery (principal) | CPT/HCPCS: 93880 ==

== ENCOUNTER → 2025-06-16 07:16 | Outpatient (REF) | payer MEDICARE, SELFPAY ==
[2025-06-16 08:29] LABS: Hematocrit 34.3 % (37.0-47.0); Hemoglobin 11.2 g/dL (12.0-16.0); Mean Corp Hgb Conc. 32.7 g/dL (33.0-37.0); Mean Corpuscular Volume 96.6 fL (81.0-99.0); Nucleated Red Blood Cells % 0 %; Platelet Count 258 10^3/uL (130-400); Red Cell Dist. Width 12.2 % (11.5-14.5)
[2025-06-16 08:45] LABS: Urine Character Clear (Clear)
[2025-06-16 09:04] LABS: ALT (SGPT) 20 U/L (0-35); AST (SGOT) 21 U/L (14-36); Albumin 4.0 g/dl (3.5-5.0); Alkaline Phosphatase 96 U/L (38-126); Blood Urea Nitrogen 27 mg/dl (7-17); Calcium 9.7 mg/dl (8.4-10.2); Carbon Dioxide 27 mmol/L (22-30); Chloride 110 mmol/L (98-107); Glucose 100 mg/dl (70-99); HDL Cholesterol 59 mg/dl; LDL Cholesterol, Calculated 64 mg/dl; Potassium 4.9 mmol/L (3.5-5.1); Sodium 142 mmol/L (135-145); Total Protein 6.6 g/dl (6.3-8.2); Very Low Density Lipoprotein 13 mg/dl (0-30); eGFR > 60.00
[2025-06-16 09:25] LABS: TSH 0.93 uIU/ml (0.47-4.68)
== END ==
LOC: REG 07:16
PROVIDERS: ATTENDING PHYSICIAN Internal Medicine
DX: E06.1 Subacute thyroiditis (principal); I10 Essential (primary) hypertension; G62.9 Polyneuropathy, unspecified; E78.00 Pure hypercholesterolemia, unspecified
CPT/HCPCS: 36415; 80053; 80061; 81003; 81015; 84439; 84443; 85025